=== PATIENT | female | born 1940 | race Caucasian/White ===

== ENCOUNTER 2016-10-14 15:55 | Emergency (ER) | payer MEDICARE ==
[2016-10-14] MEDS ORDERED: diltiaZEM INJ 5 MG/ML VIAL ONE ×2 (16:12→16:41)
[2016-10-14] MEDS ORDERED: diltiaZEM INJ 5 MG/ML VIAL IVP STA ×2 (16:14→16:41)
[2016-10-14 16:32] LABS: BASOPHILS % (AUTO) 0.7 %; EOSINOPHILS # (AUTO) 0.4 10^3/uL (0.0-0.7); EOSINOPHILS % (AUTO) 6.1 %; HCT - HEMATOCRIT 41.7 % (37.0-47.0); HGB - HEMOGLOBIN 14.3 g/dL (12.0-16.0); LYMPHOCYTES # (AUTO) 2.1 10^3/uL (1.5-3.5); LYMPHOCYTES % (AUTO) 35.5 %; MEAN CORPUSCULAR HEMOGLOBIN 32.8 pg (27.0-31.0); MEAN CORPUSCULAR HGB CONC 34.4 g/dL (32.0-36.0); MEAN CORPUSCULAR VOLUME 95.5 fL (81.0-99.0); MONOCYTES # (AUTO) 0.7 10^3/uL (0.0-1.0); MONOCYTES % (AUTO) 11.2 %; NEUTROPHILS # (AUTO) 2.8 10^3/uL (1.5-6.6); NEUTROPHILS % (AUTO) 46.5 %; RED BLOOD COUNT 4.37 10^6/uL (4.20-5.40); RED CELL DISTRIBUTION WIDTH 13.5 % (12.0-15.0); UNCORRECTED WHITE BLOOD COUNT 5.9 x10^3/uL; WHITE BLOOD COUNT 5.9 x10^3/uL (4.8-10.8)
[2016-10-14 16:43] LABS: ALBUMIN/GLOBULIN RATIO 1.2 (1.0-2.2); BILIRUBIN,TOTAL 1.1 mg/dL (0.2-1.0); CALCIUM 9.7 mg/dL (8.5-10.3); CREATININE 1.2 mg/dL (0.4-1.0); POTASSIUM 4.5 mmol/L (3.5-5.0); TOTAL PROTEIN 7.8 g/dL (6.7-8.2)
[2016-10-14] MEDS ORDERED: diltiaZEM INJ 125 MG in DEXTROSE 5% 100 ML IV STA (17:55)
[2016-10-14] MEDS ORDERED: DIGOXIN 500 MCG/2 ML AMP IVP STA (17:55)
--- NOTE | 2016-10-14 17:56 | ED Physician Documentation ---
History of Present Illness - Stated complaint Stated Complaint: EKG FOLLOW UP - Chief complaint Chief Complaint: Cardiac - History obtained from History obtained from: Patient - History of Present Illness Timing: Today - Additonal information Additional information: The patient is a 76-year-old female with history of atrial flutter, 17 month status post ablation therapy, who presents with rapid heart rate that she thinks started this morning. Her subcontract manager sent her to the hospital for an outpatient EKG. When that was performed the computer read it as an acute inferior IN. The patient was then sent directly to the emergency department. She denies chest pain, nausea, vomiting, or lightheadedness. She does report mild shortness of breath with activity. She has been power washing for the past 5 days and thinks her mild shortness of breath is associated with that. She denies cough or fever. Her medications include amlodipine and spironolactone. She was previously on diltiazem until that was stopped after her ablation therapy. Review of Systems Constitutional: denies: Fever, Myalgias Ears: denies: Tinnitus/ringing Nose: denies: Congestion Throat: denies: Sore throat Cardiac: reports: Palpitations. denies: Chest pain / pressure Respiratory: reports: Dyspnea (mild). denies: Cough GI: denies: Abdominal Pain, Nausea, Vomiting : denies: Dysuria Skin: denies: Rash Musculoskeletal: denies: Back pain, Extremity pain, Extremity swelling Neurologic: denies: Focal weakness, Numbness, Headache PD PAST MEDICAL HISTORY - Past Medical History Past Medical History: Yes Cardiovascular: Hypertension, Atrial flutter, Arrhythmia - Past Surgical History Past Surgical History: Yes General: Appendectomy - Present Medications Home Medications: Ambulatory Orders Medication Instructions Recorded Confirmed Diltiazem HCl [Diltiazem ER] 240 mg PO DAILY #30 tab.er.24h 10/14/16 Spironolactone 25 mg PO DAILY 10/14/16 10/14/16 amLODIPine [Norvasc] 5 mg PO DAILY 10/14/16 10/14/16 - Allergies Allergies/Adverse Reactions: Allergies Allergy/AdvReac Type Severity Reaction Status Date / Time Opioids - Morphine Analogues Allergy Unknown Verified 10/14/16 16:23 Penicillins Allergy Unknown Verified 10/14/16 16:23 - Social History Does the pt smoke?: No Smoking Status: Former smoker Does the pt have substance abuse?: No - POLST Patient has POLST: No PD ED PE NORMAL - Vitals Vital signs reviewed: Yes (tachycardic) - General General: Alert and oriented X 3, Well developed/nourished - HEENT HEENT: Atraumatic, EOMI - Neck Neck: No adenopathy, No JVD - Cardiac Cardiac: No murmur, Other (Rapid rate, regular rhythm.) - Respiratory Respiratory: No respiratory distress, Clear bilaterally - Abdomen Abdomen: Soft, Non tender - Back Back: No CVA TTP - Derm Derm: No rash - Extremities Extremities: No edema, No calf tenderness / cord - Neuro Neuro: Alert and oriented X 3, No motor deficit, Normal speech Results - Vitals Vitals: Vital Signs - 24 hr 10/14/16 10/14/16 10/14/16 15:56 16:10 16:15 Temperature 36.4 C L Heart Rate 131 H 130 H Respiratory 18 20 Rate Blood Pressure 146/106 H 125/80 Blood Pressure 141/86 H [Left] Blood Pressure 150/95 H [Right] O2 Saturation 96 99 10/14/16 10/14/16 10/14/16 16:20 16:25 16:30 Temperature Heart Rate 125 H 124 H 127 H Respiratory 20 18 Rate Blood Pressure 146/90 H 154/95 H Blood Pressure [Left] Blood Pressure [Right] O2 Saturation 100 100 10/14/16 10/14/16 10/14/16 16:40 16:45 16:50 Temperature Heart Rate 130 H 130 H 115 H Respiratory Rate Blood Pressure 154/100 H Blood Pressure [Left] Blood Pressure [Right] O2 Saturation 10/14/16 10/14/16 10/14/16 17:00 17:15 17:30 Temperature Heart Rate 123 H 123 H 116 H Respiratory 16 16 16 Rate Blood Pressure 136/92 H 153/93 H 158/54 H Blood Pressure [Left] Blood Pressure [Right] O2 Saturation 99 100 10/14/16 10/14/16 10/14/16 18:00 18:14 18:15 Temperature 36.2 C L Heart Rate 126 H 127 H 125 H Respiratory 16 18 16 Rate Blood Pressure 145/66 H 148/75 H 163/86 H Blood Pressure [Left] Blood Pressure [Right] O2 Saturation 100 94 10/14/16 10/14/16 10/14/16 18:30 19:18 19:19 Temperature 36.5 C Heart Rate 122 H 126 H 126 H Respiratory 16 18 16 Rate Blood Pressure 173/84 H 157/89 H 157/89 H Blood Pressure [Left] Blood Pressure [Right] O2 Saturation 100 96 96 Oxygen O2 Source Room air - EKG (time done) 15:35 Rate: Rate (enter#) (129) Rhythm: Atrial flutter (with 2:1 block.) Grulla: Normal Computer interpretation: Disagree with computer (Atrial flutter with 2:1 block; not sinus tach, and not acute inferior IN.) 17:18 Rate: Rate (enter#) (126) Rhythm: Atrial flutter Grulla: Normal Other comments: Other comments (Copies of the EKGs were reviewed with subcontract manager at [facility], inspector precision for Dr. Martínez. He verifies that the EKGs reveal atrial flutter and not ST elevation ischemic abnormalities. He states this is the same EKG pattern she has had in the past.) Computer interpretation: Disagree with computer - Labs Labs: Laboratory Tests 10/14/16 10/14/16 10/14/16 16:15 16:15 16:15 WBC 5.9 RBC 4.37 Hgb 14.3 Hct 41.7 MCV 95.5 MCH 32.8 H MCHC 34.4 RDW 13.5 Plt Count 256 MPV 9.0 Neut # 2.8 Lymph # 2.1 [place] # 0.7 Eos # 0.4 Baso # 0.0 Absolute Nucleated RBC 0.00 Nucleated RBCs 0.0 Sodium 134 L Potassium 4.5 Chloride 102 Carbon Dioxide 23 Anion Gap 9.0 BUN 35 H Creatinine 1.2 H Estimated GFR (MDRD) 44 L Glucose 97 Calcium 9.7 Total Bilirubin 1.1 H AST 27 ALT 19 Alkaline Phosphatase 49 Troponin I < 0.04 Total Protein 7.8 Albumin 4.3 Globulin 3.5 Albumin/Globulin Ratio 1.2 Lipase 20 L PD MEDICAL DECISION MAKING - ED course Complexity details: reviewed results, re-evaluated patient, considered differential, d/w patient, d/w customer care voice consultant ED course: The patient's presentation is significant for atrial flutter with 2:1 block. Clinically it is not an acute myocardial infarction, and her troponin is normal. Treatment in the emergency department included administration of diltiazem 10 mg IV x2. There was no significant change in her rhythm or rate. I discussed her condition with the subcontract manager at [facility], inspector precision for Dr. Martínez. Copies of the EKGs were sent to him electronically, and he confirms that this is atrial flutter and not an acute ischemic pattern. He reports that this is the same EKG pattern she has demonstrated on previous EKGs. He recommends starting her on diltiazem drip, giving her IV digoxin, and treating with oral diltiazem ER 240 mg daily. These medications were administered. I discussed with the patient hospital transfer to [facility] because there are no beds available currently at [facility]. The patient refuses to be hospitalized. I had a long discussion with her regarding the risks of going home with a heart rate above 120, especially at her age. She continues to insist that she be discharged home. She is more concerned about her inability to cope with the hospital milieu than she is with the risk of going home with continued tachycardia. She understands that she is welcome to return to the emergency department if her condition worsens or if she changes her mind. She is being discharged with prescription for diltiazem ER 240 mg daily. She has an appointment with her subcontract manager in 4 days. Departure - Departure Disposition: 01 Home, Self Care Clinical Impression: Atrial flutter Qualifiers: Atrial flutter type: unspecified Qualified Code(s): I48.92 - Unspecified atrial flutter Condition: Stable Instructions: ED Paroxysmal Atrial Flutter Follow-Up: Teresa Medina MD [Primary Care Provider] - Kodak Martínez MD [Provider Admit Priv/Credential] - Prescriptions: Diltiazem HCl [Diltiazem ER] 240 mg PO DAILY #30 tab.er.24h Comments: Take diltiazem daily as prescribed. Cannot perform strenuous activity until your symptoms have completely resolved. Follow up with your subcontract manager next week as planned. Return to the emergency department if you develop increasing shortness of breath , chest pain, or otherwise worsening symptoms. Discharge Date/Time: 10/14/16 19:27
[2016-10-14] MEDS ORDERED: DIGOXIN 500 MCG/2 ML AMP IVP ONE (18:01)
[2016-10-14] MEDS ORDERED: diltiaZEM CD 120 MG CAPSULE PO STA (18:05)
[2016-10-14] MEDS ORDERED: diltiaZEM CD 240 MG CAPSULE PO STA (18:16)
[2016-10-14 19:19] VITALS: BP 157/89
== END 2016-10-14 19:27 | disposition home or self-care (01) ==
LOC: ED 15:55
DX: I48.92 Unspecified atrial flutter (principal); I10 Essential (primary) hypertension; I49.9 Cardiac arrhythmia, unspecified; Z87.891 Personal history of nicotine dependence
CPT/HCPCS: 36415; 80053; 83690; 84484; 85025; 93005; 93010; 96374; 96375; 96376; 99284; 99285; A9270

== ENCOUNTER 2016-10-15 10:48 | Outpatient (CLI) | payer MEDICARE | END 2016-10-15 10:49 | disposition home or self-care (01) | LOC: RT 10:48 | PROVIDERS: ATTEND Internal Medicine | DX: I48.3 Typical atrial flutter (principal); I48.0 Paroxysmal atrial fibrillation | CPT/HCPCS: 93005 ==

== ENCOUNTER 2016-10-15 12:38 | Outpatient (CLI) | payer MEDICARE | END 2016-10-15 12:39 | disposition home or self-care (01) | LOC: RT 12:38 | PROVIDERS: ATTEND Internal Medicine | DX: I48.0 Paroxysmal atrial fibrillation (principal); I48.3 Typical atrial flutter | CPT/HCPCS: 93005 ==

== ENCOUNTER 2018-03-14 14:02 | Outpatient (CLI) | payer MEDICARE ==
--- NOTE | 2018-03-14 15:13 | XRAY Report ---
Reason: CELLULITIS Procedure Date: 03/14/2018 Accession Number: [id number] / [id number] Procedure: XR - Orbits Complete CPT Code: FULL RESULT: EXAM: ORBITS RADIOGRAPHY EXAM DATE: 03/14/2018 03:03 PM. CLINICAL HISTORY: CELLULITIS. COMPARISONS: None. TECHNIQUE: 4 views. FINDINGS: Bones: No fractures or bone lesions. Sinuses: No opacities or fluid levels. Other: No radio opaque foreign body. IMPRESSION: Negative orbit radiography. RADIA
== END 2018-03-14 14:03 | disposition home or self-care (01) ==
LOC: DI 14:02
PROVIDERS: ATTEND Internal Medicine
DX: L03.90 Cellulitis, unspecified (principal)
CPT/HCPCS: 70200

== ENCOUNTER 2018-08-11 12:13 | Emergency (ER) | payer MEDICARE ==
[2018-08-11] MEDS ORDERED: diltiaZEM INJ 5 MG/ML VIAL IVP STA ×2 (13:18→14:36)
[2018-08-11] MEDS ORDERED: SODIUM CHLORIDE 0.9% 500 ML IV ONE (13:18)
--- NOTE | 2018-08-11 13:20 | ED Physician Documentation ---
PD HPI CHEST PAIN - Stated complaint Stated Complaint: DIZZINESS - Chief complaint Chief Complaint: Cardiac - History obtained from History obtained from: Patient - History of Present Illness Timing - onset: How many weeks ago (3-4) Timing - onset during: Rest, Light activity Timing - duration: Days (She has had episode of lightheadedness associated with fast heart rate episodically for the last 3-4 weeks. She was seen in the office and was found to have a fast heart rate likely atrial flutter. She was started on metoprolol which gave her trouble breathing and hives. She only took 1 dose of that. She then was tried on diltiazem and had over the next week or 2 more consistently normal heart rate but also slightly low blood pressure. She had not taken the diltiazem the last few days and notices her heart rate more consistently elevated. She does write down her heart rate and blood pressure when she takes it and her tachycardia has been consistently 135-140 without any moderate elevations in heart rate.) Timing - details: Intermittant Quality: Tightness Location: Substernal Associated symptoms: Feeling faint / dizzy, General Weakness, Palpitations. No: Shortness of air, Nausea Review of Systems Constitutional: denies: Fever, Chills, Myalgias Nose: denies: Rhinorrhea / runny nose, Congestion Throat: denies: Sore throat Respiratory: denies: Cough GI: denies: Abdominal Pain, Nausea, Vomiting, Diarrhea Neurologic: denies: Near syncope (but feeling lightheaded often over past few days) PD PAST MEDICAL HISTORY - Past Medical History Past Medical History: Yes Cardiovascular: Hypertension, Atrial flutter (She had an ablation done many years ago in [place] by Dr. Yates and had been doing well for several years. She is now started with the fast heart rate episodes in the last month or so.), Arrhythmia Endocrine/Autoimmune: None - Past Surgical History Past Surgical History: Yes General: Appendectomy - Present Medications Home Medications: Ambulatory Orders Medication Instructions Recorded Confirmed Diltiazem HCl [Diltiazem ER] 240 mg PO DAILY #30 tab.er.24h 10/14/16 Spironolactone 25 mg PO DAILY 10/14/16 10/14/16 amLODIPine [Norvasc] 5 mg PO DAILY 10/14/16 10/14/16 Benzonatate [Tessalon Perle] 100 mg PO TID PRN #20 capsule 08/11/18 Dexamethasone [Decadron] 4 mg PO DAILY #5 tablet 08/11/18 Rivaroxaban [Xarelto] 15 mg PO DAILY #7 tablet 08/11/18 diltiaZEM CD [Cardizem Cd] 180 mg PO DAILY #10 capsule 08/11/18 - Allergies Allergies/Adverse Reactions: Allergies Allergy/AdvReac Type Severity Reaction Status Date / Time Opioids - Morphine Analogues Allergy Unknown Verified 08/11/18 12:20 Penicillins Allergy Unknown Verified 08/11/18 12:20 - Social History Does the pt smoke?: No Smoking Status: Never smoker Does the pt have substance abuse?: No - POLST Patient has POLST: No PD ED PE NORMAL - Vitals Vital signs reviewed: Yes (Fast heart rate at 140 consistently and blood pressure is slightly low but ) - General General: Alert and oriented X 3, No acute distress, Well developed/nourished - HEENT HEENT: Pharynx benign - Neck Neck: Supple, no meningeal sign, No adenopathy, No JVD - Cardiac Cardiac: No: RRR (Tachycardic but regular) - Respiratory Respiratory: Clear bilaterally - Abdomen Abdomen: Soft, Non tender - Derm Derm: Normal color, Warm and dry - Extremities Extremities: No tenderness to palpate, No edema, No calf tenderness / cord - Neuro Neuro: Alert and oriented X 3, No motor deficit, Normal speech Results - Vitals Vitals: Vital Signs - 24 hr 08/11/18 08/11/18 08/11/18 12:17 12:20 13:38 Temperature 35.6 C L Heart Rate 140 H 140 H 141 H Respiratory 14 14 Rate Blood Pressure 103/71 103/71 131/84 H O2 Saturation 98 98 08/11/18 08/11/18 08/11/18 13:39 14:58 16:00 Temperature Heart Rate 140 H 139 H 137 H Respiratory 14 16 Rate Blood Pressure 124/87 H 104/92 H 107/91 H O2 Saturation 98 98 100 08/11/18 17:50 Temperature 36.6 C Heart Rate 130 H Respiratory 16 Rate Blood Pressure 108/90 H O2 Saturation 100 Oxygen O2 Source Room air - EKG (time done) 12:36 Rate: Rate (enter#) (142) Rhythm: Atrial flutter Diller: Normal QRS: Normal Ischemia: Normal ST segments. No: ST elevation c/w ischemia, ST depression - Labs Labs: Laboratory Tests 08/11/18 08/11/18 08/11/18 12:38 12:38 12:38 WBC 5.6 RBC 4.82 Hgb 15.5 Hct 46.7 MCV 96.9 MCH 32.1 H MCHC 33.1 RDW 12.6 Plt Count 315 MPV 8.8 Neut # (Auto) 3.4 Lymph # (Auto) 1.6 [place] # (Auto) 0.5 Eos # (Auto) 0.1 Baso # (Auto) 0.0 Absolute Nucleated RBC 0.01 Nucleated RBC % 0.1 Sodium 134 L Potassium 4.6 Chloride 101 Carbon Dioxide 21 Anion Gap 12.0 BUN 37 H Creatinine 1.8 H Estimated GFR (MDRD) 27 L Glucose 133 H Calcium 10.2 Magnesium 2.2 Total Bilirubin 1.1 H AST 25 ALT 19 Alkaline Phosphatase 51 B-Natriuretic Peptide 69 Total Protein 7.9 Albumin 4.4 Globulin 3.5 Albumin/Globulin Ratio 1.3 Lipase 29 TSH 08/11/18 12:38 WBC RBC Hgb Hct MCV MCH MCHC RDW Plt Count MPV Neut # (Auto) Lymph # (Auto) [place] # (Auto) Eos # (Auto) Baso # (Auto) Absolute Nucleated RBC Nucleated RBC % Sodium Potassium Chloride Carbon Dioxide Anion Gap BUN Creatinine Estimated GFR (MDRD) Glucose Calcium Magnesium Total Bilirubin AST ALT Alkaline Phosphatase B-Natriuretic Peptide Total Protein Albumin Globulin Albumin/Globulin Ratio Lipase TSH 3.05 - Rads (name of study) chest xray Radiology: Prelim report reviewed (No signs of failure.), See rad report PD MEDICAL DECISION MAKING - ED course Complexity details: re-evaluated patient (She did not have any slowing with doses of diltiazem. I did try adenosine to verify atrial flutter versus SVT and there clearly were flutter waves during the pausing time with the adenosine. He returned to the same heart rate of 140. I talked with her about potential rhythm changing medicines or cardioversion but wanted to discuss with the vp organizational development first. After discussion with the on-call vp organizational development, he gave appropriate recommendation to defer any cardioversion given the timing that she is likely had the flutter for concern of clots and potential stroke. I relayed this to the patient and the cardiology recommendation to start anticoagulation and change the dosing of diltiazem to 1 in between help and the heart rate and not lowering her blood pressure. Stay well-hydrated. Follow-up with Dr. Martínez. She does have a appointment with him in 6 days. She should call the office tomorrow to see if they can see her sooner. She was hoping to feel improved and have the heart rhythm resolved here in the ER. And I conveyed to her the concern for potential stroke with cardioversion and that she has reasonably tolerated the heart rate being intermittently in flutter over the last few weeks with lightheadedness at times but we can try to mitigate that with a different diltiazem dose.She had felt lightheaded and had blood pressures in the 80s or 90s with the 240 mg diltiazem. Her heart rate was going faster with the half tablet of 120 mg. I therefore wrote a prescription for 180 to see if that would be an optimal middle.), considered differential (The heart monitor is showing a regular pattern and a fast rate at very consistently 135-140. There is not much variation in it. The EKG showing reading sinus rhythm tachycardia but I believe it to be atrial flutter. We will do some labs but she does not seem to have signs of failure. She shows me her blood pressure and heart rate readings over the last several weeks which showed most of the time of rate of 137-140. Her blood pressure was intermittently low and that correlated when she was feeling lightheaded. She had cut back the dose of her diltiazem to accommodate the blood pressure being low and stop the diltiazem or a few days ago. Her blood pressure is better but her heart rate is fast again. There has been times where her heart rate was normal over the past few weeks.She has noticed it being 137-140 consistently over the last 3-4 days.), d/w patient Departure - Departure Disposition: 01 Home, Self Care Clinical Impression: Atrial flutter Qualifiers: Atrial flutter type: unspecified Qualified Code(s): I48.92 - Unspecified atrial flutter Condition: Stable Record reviewed to determine appropriate education?: Yes Instructions: ED Paroxysmal Atrial Flutter Follow-Up: Teresa Medina MD [Primary Care Provider] - Kodak Martínez MD [Provider Admit Priv/Credential] - Prescriptions: Benzonatate [Tessalon Perle] 100 mg PO TID PRN #20 capsule PRN Reason: Cough Dexamethasone [Decadron] 4 mg PO DAILY #5 tablet diltiaZEM CD [Cardizem Cd] 180 mg PO DAILY #10 capsule Rivaroxaban [Xarelto] 15 mg PO DAILY #7 tablet Comments: Continue the Diltiazem as directed (could use a lower dose so less BP effect). Decadron and Tessalon to help decrease the cough. Stay well-hydrated. Start Xarelto daily at the direction of the vp organizational development. Follow-up with Dr. Martínez as planned. Discharge Date/Time: 08/11/18 17:50
[2018-08-11 13:32] LABS: BASOPHILS % (AUTO) 0.3 %; EOSINOPHILS # (AUTO) 0.1 10^3/uL (0.0-0.7); EOSINOPHILS % (AUTO) 1.7 %; HGB - HEMOGLOBIN 15.5 g/dL (12.0-16.0); LYMPHOCYTES # (AUTO) 1.6 10^3/uL (1.5-3.5); LYMPHOCYTES % (AUTO) 27.9 %; MEAN CORPUSCULAR HEMOGLOBIN 32.1 pg (27.0-31.0); MEAN CORPUSCULAR HGB CONC 33.1 g/dL (32.0-36.0); MEAN CORPUSCULAR VOLUME 96.9 fL (81.0-99.0); MEAN PLATELET VOLUME 8.8 fL (7.9-10.8); MONOCYTES # (AUTO) 0.5 10^3/uL (0.0-1.0); MONOCYTES % (AUTO) 9.3 %; NEUTROPHILS # (AUTO) 3.4 10^3/uL (1.5-6.6); NEUTROPHILS % (AUTO) 60.8 %; PLT - PLATELET COUNT 315 10^3/uL (130-450); RED BLOOD COUNT 4.82 10^6/uL (4.20-5.40); RED CELL DISTRIBUTION WIDTH 12.6 % (12.0-15.0); WHITE BLOOD COUNT 5.6 x10^3/uL (4.8-10.8)
[2018-08-11 13:41] LABS: ALBUMIN 4.4 g/dL (3.2-5.5); ALBUMIN/GLOBULIN RATIO 1.3 (1.0-2.2); BILIRUBIN,TOTAL 1.1 mg/dL (0.2-1.0); CALCIUM 10.2 mg/dL (8.5-10.3); CREATININE 1.8 mg/dL (0.4-1.0); MAGNESIUM 2.2 mg/dL (1.7-2.8); TOTAL PROTEIN 7.9 g/dL (6.7-8.2)
[2018-08-11] MEDS ORDERED: ADENOSINE 6 MG/2 ML VIAL IVP STA (14:14)
--- NOTE | 2018-08-11 14:16 | XRAY Report ---
Reason: chest pain Procedure Date: 08/11/2018 Accession Number: [id number] / [id number] Procedure: XR - Chest 1 View X-Ray CPT Code: 09852 FULL RESULT: EXAM: CHEST RADIOGRAPHY EXAM DATE: 08/11/2018 01:53 PM. CLINICAL HISTORY: Chest pain. Rapid heart rate for 1 month. Productive cough for 2 weeks. COMPARISON: 12/23/2014 5:43 PM. TECHNIQUE: Upright AP view. FINDINGS: Lungs/Pleura: No focal opacities evident. No peribronchial cuffing or interstitial abnormality. No pleural effusion. No pneumothorax. Mediastinum: Within exam limitations, the cardiomediastinal contour is normal. Other: None. IMPRESSION: Normal single view chest. RADIA
[2018-08-11] MEDS ORDERED: diltiaZEM 30 MG TABLET PO STA (16:13)
[2018-08-11] MEDS ORDERED: RIVAROXABAN 15 MG TABLET PO STA (16:13)
[2018-08-11] MEDS ORDERED: BENZONATATE 100 MG CAPSULE PO STA (16:14)
[2018-08-11 17:51] VITALS: BP 108/90
== END 2018-08-11 17:50 | disposition home or self-care (01) ==
LOC: ED 12:13
DX: I10 Essential (primary) hypertension (principal); I48.92 Unspecified atrial flutter; I95.9 Hypotension, unspecified
CPT/HCPCS: 36415; 71045; 83690; 83735; 83880; 93005; 96361; 96374; 96375; 99284; A9270; J0153; 80053; 84443; 85025

== ENCOUNTER 2018-08-17 09:49 | Outpatient (CLI) | payer MEDICARE | END 2018-08-17 09:50 | disposition home or self-care (01) | LOC: RT 09:49 | PROVIDERS: ATTEND Internal Medicine Cardiovascular Disease | DX: I48.92 Unspecified atrial flutter (principal) | CPT/HCPCS: 93005 ==

== ENCOUNTER 2018-09-06 10:37 | Outpatient (CLI) | payer MEDICARE ==
[2018-09-06 11:18] LABS: BASOPHILS # (AUTO) 0.1 10^3/uL (0.0-0.1); BASOPHILS % (AUTO) 1.2 %; EOSINOPHILS # (AUTO) 0.3 10^3/uL (0.0-0.7); EOSINOPHILS % (AUTO) 5.7 %; LYMPHOCYTES # (AUTO) 1.4 10^3/uL (1.5-3.5); LYMPHOCYTES % (AUTO) 28.2 %; MEAN CORPUSCULAR HEMOGLOBIN 32.3 pg (27.0-31.0); MEAN CORPUSCULAR HGB CONC 33.1 g/dL (32.0-36.0); MEAN CORPUSCULAR VOLUME 97.3 fL (81.0-99.0); MEAN PLATELET VOLUME 8.5 fL (7.9-10.8); MONOCYTES # (AUTO) 0.5 10^3/uL (0.0-1.0); MONOCYTES % (AUTO) 10.4 %; NEUTROPHILS # (AUTO) 2.8 10^3/uL (1.5-6.6); NEUTROPHILS % (AUTO) 54.5 %; PLT - PLATELET COUNT 251 10^3/uL (130-450); RED BLOOD COUNT 4.04 10^6/uL (4.20-5.40); RED CELL DISTRIBUTION WIDTH 13.2 % (12.0-15.0); WHITE BLOOD COUNT 5.1 x10^3/uL (4.8-10.8)
[2018-09-06 11:24] LABS: INR 1.4 (0.8-1.2); PT - PROTHROMBIN TIME 15.9 secs (9.9-12.6)
[2018-09-06 11:35] LABS: CALCIUM 9.7 mg/dL (8.5-10.3); CREATININE 1.2 mg/dL (0.4-1.0)
== END 2018-09-06 10:38 | disposition home or self-care (01) ==
LOC: LAB 10:37
PROVIDERS: ATTEND Internal Medicine
DX: I48.3 Typical atrial flutter (principal)
CPT/HCPCS: 36415; 80048; 85025; 85610

== ENCOUNTER 2019-04-10 11:47 | Outpatient (CLI) | payer MEDICARE ==
--- NOTE | 2019-04-11 09:35 | XRAY Report ---
Reason: CHEST PAIN Procedure Date: 04/10/2019 Accession Number: [id number] / [id number] Procedure: WCP - Chest 2 View X-Ray CPT Code: 21506 Final Report FULL RESULT: EXAM: CHEST RADIOGRAPHY EXAM DATE: 04/10/2019 11:47 AM. CLINICAL HISTORY: CHEST PAIN. COMPARISON: CHEST 1 VIEW 08/11/2018 1:42 PM XR CHEST PA AND LAT 11/24/2011 10:16 AM. TECHNIQUE: 2 views. FINDINGS: Lungs/Pleura: Hazy opacity in the left lung base with trace ipsilateral effusion. The lungs are otherwise grossly clear. No pneumothorax. Mediastinum: Stable cardiac mediastinal contour. Other: None. IMPRESSION: Minimal left basilar opacity with trace ipsilateral effusion. RADIA
== END 2019-04-10 23:59 | disposition home or self-care (01) ==
LOC: DI.WCP 11:47
PROVIDERS: ATTEND Family Medicine
DX: R91.8 Other nonspecific abnormal finding of lung field (principal)
CPT/HCPCS: 71046

== ENCOUNTER 2019-05-31 13:59 | Outpatient (CLI) | payer MEDICARE ==
--- NOTE | 2019-05-31 20:41 | Ultrasound Report ---
Reason: LUE EDEMA Procedure Date: 05/31/2019 Accession Number: [id number] / [id number] Procedure: US - Duplex Ext Veins Left CPT Code: Final Report FULL RESULT: EXAM: LEFT LOWER EXTREMITY VENOUS ULTRASOUND EXAM DATE: 05/31/2019 03:22 PM. CLINICAL HISTORY: Left upper extremity edema. COMPARISON: None. TECHNIQUE: Real-time sonographic vascular imaging was performed by the title insurance sales representative through the lower extremity utilizing both color-flow and Doppler spectral analysis. Multiple financial services sales representative static images were saved for review. FINDINGS: Common Femoral Vein (CFV): Normal. CFV-GSV Junction: Normal. Profunda Femoral Vein (PFV): Normal. Femoral Vein (FV) Prox: Normal. Femoral Vein (FV) Mid: Normal. Femoral Vein (FV) Dist: Normal. Popliteal Vein: Normal. Posterior Tibial Veins: Normal. Peroneal Veins: Normal. Contralateral Side CFV: Normal. Other: Complex debris-containing collection is noted along the tendons of the dorsal left hand corresponding to the patient's palpable finding. Overall, the fluid measures approximately 2.5 x 2.2 x 1 cm. Peripheral hypervascularity is noted on color imaging. IMPRESSION: 1. No evidence for deep venous thrombosis. 2. Complex debris-containing fluid along the tendons of the dorsal left hand with surrounding hyperemia. Fluid measures approximately 2.5 x 2.2 x 1 cm. Findings most likely represent an inflammatory process possibly due to tenosynovitis. No definite abscess. 3. If finding continues to increase in size or becomes painful, recommend MRI with and without contrast. RADIA
== END 2019-05-31 14:00 | disposition home or self-care (01) ==
LOC: DI 13:59
PROVIDERS: ATTEND Internal Medicine
DX: R60.0 Localized edema (principal)

== ENCOUNTER 2020-09-18 10:44 | Outpatient (CLI) | payer MEDICARE | END 2020-09-18 10:45 | disposition home or self-care (01) | LOC: RT 10:44 | PROVIDERS: ATTEND Internal Medicine Cardiovascular Disease | DX: I48.92 Unspecified atrial flutter (principal) | CPT/HCPCS: 93005 ==

== ENCOUNTER 2020-11-25 13:34 | Outpatient (CLI) | payer MEDICARE ==
[2020-11-25 13:52] LABS: HCT - HEMATOCRIT 42.8 % (37.0-47.0); MEAN CORPUSCULAR HEMOGLOBIN 32.3 pg (27.0-31.0); MEAN CORPUSCULAR HGB CONC 32.7 g/dL (32.0-36.0); MEAN CORPUSCULAR VOLUME 98.8 fL (81.0-99.0); MEAN PLATELET VOLUME 9.7 fL (7.9-10.8); RED BLOOD COUNT 4.33 10^6/uL (4.20-5.40); RED CELL DISTRIBUTION WIDTH 13.7 % (12.0-15.0); WHITE BLOOD COUNT 5.5 x10^3/uL (4.8-10.8)
[2020-11-25 13:59] LABS: CALCIUM 9.9 mg/dL (8.5-10.3); CREATININE 1.4 mg/dL (0.4-1.0); POTASSIUM 4.6 mmol/L (3.5-5.0)
== END 2020-11-25 13:35 | disposition home or self-care (01) ==
LOC: LAB 13:34
PROVIDERS: ATTEND Internal Medicine Cardiovascular Disease
DX: I48.3 Typical atrial flutter (principal)
CPT/HCPCS: 36415; 80048; 85027

== ENCOUNTER 2021-07-02 12:15 | Emergency (ER) | payer MEDICARE ==
[2021-07-02] MEDS ORDERED: SODIUM CHLORIDE 0.9% 1,000 ML IV STA (12:25)
[2021-07-02 12:50] LABS: BASOPHILS % (AUTO) 0.2 %; EOSINOPHILS % (AUTO) 0.4 %; HCT - HEMATOCRIT 46.6 % (37.0-47.0); HGB - HEMOGLOBIN 15.4 g/dL (12.0-16.0); LYMPHOCYTES # (AUTO) 1.4 10^3/uL (1.5-3.5); MEAN CORPUSCULAR VOLUME 96.7 fL (81.0-99.0); MEAN PLATELET VOLUME 10.4 fL (7.9-10.8); MONOCYTES # (AUTO) 0.4 10^3/uL (0.0-1.0); NEUTROPHILS # (AUTO) 2.9 10^3/uL (1.5-6.6); NEUTROPHILS % (AUTO) 61.2 %; PLT - PLATELET COUNT 248 10^3/uL (130-450); RED BLOOD COUNT 4.82 10^6/uL (4.20-5.40); RED CELL DISTRIBUTION WIDTH 12.8 % (12.0-15.0); WHITE BLOOD COUNT 4.7 x10^3/uL (4.8-10.8)
[2021-07-02 12:59] LABS: ALBUMIN 4.2 g/dL (3.2-5.5); ALBUMIN/GLOBULIN RATIO 1.2 (1.0-2.2); BILIRUBIN,TOTAL 0.9 mg/dL (0.2-1.0); CALCIUM 9.4 mg/dL (8.5-10.3); CREATININE 1.8 mg/dL (0.4-1.0); POTASSIUM 4.2 mmol/L (3.5-5.0); TOTAL PROTEIN 7.8 g/dL (6.7-8.2)
--- NOTE | 2021-07-02 13:08 | ED Physician Documentation ---
History of Present Illness - Stated complaint Stated Complaint: HYPOTENSIVE - Chief complaint Chief Complaint: Neuro - History obtained from History obtained from: Patient - History of Present Illness Timing: How many days ago (10) Pain level max: 0 Pain level now: 0 - Additonal information Additional information: 81-year-old female presents to the emergency department stating she has felt weak and tired for the past 10 days. Mild cough. No fevers. No chills. Has not been eating and drinking well. She states that she has felt lightheaded with standing. No chest pain. No shortness of breath. No nausea or vomiting. No abdominal pain. 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 denies: Dyspnea, Wheezing GI: denies: Nausea, Vomiting, Diarrhea Skin: denies: Rash Musculoskeletal: denies: Neck pain, Back pain Neurologic: denies: Headache PD PAST MEDICAL HISTORY - Past Medical History Cardiovascular: Hypertension, Atrial flutter (She had an ablation done many years ago in [place] by Dr. Yates and had been doing well for several years. She is now started with the fast heart rate episodes in the last month or so.), Arrhythmia Endocrine/Autoimmune: None - Past Surgical History Past Surgical History: Yes General: Appendectomy - Present Medications Home Medications: Ambulatory Orders Medication Instructions Recorded Confirmed Spironolactone 25 mg PO DAILY 10/14/16 10/14/16 amLODIPine [Norvasc] 5 mg PO DAILY 10/14/16 10/14/16 dilTIAZem HCl [Diltiazem ER] 240 mg PO DAILY #30 tab.er.24h 10/14/16 Benzonatate [Tessalon Perle] 100 mg PO TID PRN #20 capsule 08/11/18 Rivaroxaban [Xarelto] 15 mg PO DAILY #7 tablet 08/11/18 dexAMETHasone [Decadron] 4 mg PO DAILY #5 tablet 08/11/18 diltiaZEM CD [Cardizem Cd] 180 mg PO DAILY #10 capsule 08/11/18 - Allergies Allergies/Adverse Reactions: Allergies Allergy/AdvReac Type Severity Reaction Status Date / Time Opioids - Morphine Analogues Allergy Unknown Verified 07/02/21 12:30 Penicillins Allergy Unknown Verified 07/02/21 12:30 - Social History Does the pt smoke?: No Smoking Status: Never smoker Does the pt have substance abuse?: No - POLST Patient has POLST: No PD ED PE NORMAL - Vitals Vital signs reviewed: Yes - General General: Alert and oriented X 3, No acute distress, Well developed/nourished - HEENT HEENT: PERRL, Moist mucous membranes - Neck Neck: Supple, no meningeal sign - Cardiac Cardiac: RRR, Strong equal pulses - Respiratory Respiratory: No respiratory distress, Clear bilaterally - Abdomen Abdomen: Soft, Non tender, Non distended - Derm Derm: Warm and dry - Extremities Extremities: No calf tenderness / cord, Other (1+ B LE edema) - Neuro Neuro: Alert and oriented X 3 - Psych Psych: Normal mood, Normal affect Results - Vitals Vitals: Vital Signs - 24 hr 07/02/21 07/02/21 07/02/21 12:20 13:06 13:30 Temperature 36.9 C Heart Rate 79 87 73 Respiratory 18 20 14 Rate Blood Pressure 109/67 117/89 H 135/85 H O2 Saturation 99 95 95 07/02/21 07/02/21 07/02/21 14:00 14:30 15:00 Temperature Heart Rate 85 82 84 Respiratory 10 L 23 22 Rate Blood Pressure 119/108 H 92/73 99/75 O2 Saturation 98 95 96 Oxygen O2 Source Room air - EKG (time done) 1308 Rate: Rate (enter#) (84) Rhythm: Atrial fibrillation [place]: Normal QRS: Normal Ischemia: Normal ST segments - Labs Labs: Laboratory Tests 07/02/21 07/02/21 07/02/21 12:39 12:39 12:39 WBC 4.7 L RBC 4.82 Hgb 15.4 Hct 46.6 MCV 96.7 MCH 32.0 H MCHC 33.0 RDW 12.8 Plt Count 248 MPV 10.4 Neut # (Auto) 2.9 Lymph # (Auto) 1.4 L [place] # (Auto) 0.4 Eos # (Auto) 0.0 Baso # (Auto) 0.0 Absolute Nucleated RBC 0.00 Nucleated RBC % 0.0 Sodium 134 L Potassium 4.2 Chloride 102 Carbon Dioxide 20 L Anion Gap 12.0 BUN 28 H Creatinine 1.8 H Estimated GFR (MDRD) 27 L Glucose 148 H Calcium 9.4 Total Bilirubin 0.9 AST 30 ALT 24 Alkaline Phosphatase 74 Troponin I High Sens 7.6 B-Natriuretic Peptide Total Protein 7.8 Albumin 4.2 Globulin 3.6 Albumin/Globulin Ratio 1.2 Lipase 34 Urine Color Urine Clarity Urine pH Ur Specific [place] Urine Protein Urine Glucose (UA) Urine Ketones Urine Occult Blood Urine Nitrite Urine Bilirubin Urine Urobilinogen Ur Leukocyte Esterase Urine RBC Urine WBC Ur Squamous Epith Cells Amorphous Sediment Urine Bacteria Ur Microscopic Review Urine Culture Comments Nasal Adenovirus (PCR) Nasal B. parapertussis DNA (PCR) Nasal Coronavir 229E PCR Nasal Coronavir HKU1 PCR Nasal Coronavir NL63 PCR Nasal Coronavir OC43 PCR Nasal Enterovir/Rhinovir PCR Nasal Influenza B PCR Nasal Influenza A PCR Nasal Parainfluen 1 PCR Nasal Parainfluen 2 PCR Nasal Parainfluen 3 PCR Nasal Parainfluen 4 PCR Nasal RSV (PCR) Nasal B.pertussis DNA PCR Nasal C.pneumoniae (PCR) [place] Human Metapneumo PCR Nasal M.pneumoniae (PCR) Nasal SARS-CoV-2 (PCR) 07/02/21 07/02/21 07/02/21 12:39 13:05 13:55 WBC RBC Hgb Hct MCV MCH MCHC RDW Plt Count MPV Neut # (Auto) Lymph # (Auto) [place] # (Auto) Eos # (Auto) Baso # (Auto) Absolute Nucleated RBC Nucleated RBC % Sodium Potassium Chloride Carbon Dioxide Anion Gap BUN Creatinine Estimated GFR (MDRD) Glucose Calcium Total Bilirubin AST ALT Alkaline Phosphatase Troponin I High Sens B-Natriuretic Peptide 264 H Total Protein Albumin Globulin Albumin/Globulin Ratio Lipase Urine Color YELLOW Urine Clarity SL. CLOUDY Urine pH 7.0 Ur Specific [place] 1.020 Urine Protein 100 H Urine Glucose (UA) NEGATIVE Urine Ketones TRACE Urine Occult Blood NEGATIVE Urine Nitrite NEGATIVE Urine Bilirubin NEGATIVE Urine Urobilinogen 1 (NORMAL) Ur Leukocyte Esterase NEGATIVE Urine RBC 6-10 H Urine WBC 0-3 Ur Squamous Epith Cells MOD Squamous H Amorphous Sediment Few Urine Bacteria Moderate H Ur Microscopic Review INDICATED Urine Culture Comments NOT INDICATED Nasal Adenovirus (PCR) NOT DETECTED Nasal B. parapertussis DNA (PCR) NOT DETECTED Nasal Coronavir 229E PCR NOT DETECTED Nasal Coronavir HKU1 PCR NOT DETECTED Nasal Coronavir NL63 PCR NOT DETECTED Nasal Coronavir OC43 PCR NOT DETECTED Nasal Enterovir/Rhinovir PCR NOT DETECTED Nasal Influenza B PCR NOT DETECTED Nasal Influenza A PCR NOT DETECTED Nasal Parainfluen 1 PCR NOT DETECTED Nasal Parainfluen 2 PCR NOT DETECTED Nasal Parainfluen 3 PCR NOT DETECTED Nasal Parainfluen 4 PCR NOT DETECTED Nasal RSV (PCR) NOT DETECTED Nasal B.pertussis DNA PCR NOT DETECTED Nasal C.pneumoniae (PCR) NOT DETECTED [place] Human Metapneumo PCR NOT DETECTED Nasal M.pneumoniae (PCR) NOT DETECTED Nasal SARS-CoV-2 (PCR) DETECTED A - Rads (name of study) cxr Radiology: Final report received, EMP read contemporaneously, See rad report (1. Small right middle lobe pulmonary infiltrate consistent with pneumonia ) PD MEDICAL DECISION MAKING - ED course Complexity details: reviewed results, re-evaluated patient, considered differential, d/w patient ED course: 81-year-old female with what appears to be dehydration as well as Covid. Chest x-ray is likely consistent with viral pneumonia/Covid. No indication for antibiotics at this time. Patient is well-appearing, nontoxic. Lightheadedness resolved with IV fluids. Tolerating p.o. without difficulty and ambulating without difficulty and without assistance. Patient request to go home at this time. Patient has been sick with Covid for about 10 days. Not vaccinated. Patient counseled regarding signs and symptoms for which I believe and urgent re-evaluation would be necessary. Patient with good understanding of and agreement to plan and is comfortable going home at this time This document was made in part using voice recognition software. While efforts are made to proofread this document, sound alike and grammatical errors may occur. Departure - Departure Disposition: 01 Home, Self Care Clinical Impression: COVID-19 Hypotension Qualifiers: Hypotension type: unspecified hypotension type Qualified Code(s): I95.9 - Hypotension, unspecified Condition: Good Instructions: COVID-19 [facility] Follow-Up: Kodak Martínez MD [Provider Admit Priv/Credential] - Within 1 week Kennedy Moya MD [Primary Care Provider] - Within 1 week Comments: Drink plenty of fluids and rest. Return if you worsen. You have tested positive for Covid today and need to self quarantine. Discharge Date/Time: 07/02/21 15:37
--- NOTE | 2021-07-02 13:42 | XRAY Report ---
PROCEDURE: Chest 1 View X-Ray INDICATIONS: cough TECHNIQUE: One view of the chest was acquired. COMPARISON: 12/23/2014 FINDINGS: Surgical changes and devices: None. Lungs and pleura: Right middle lobe focal pulmonary infiltrate noted over the right hemidiaphragm. Re mainder of the lungs and pleural spaces are clear. Mediastinum: Mediastinal contours appear normal. Heart size is normal. Bones and chest wall: No suspicious bony lesions. Overlying soft tissues appear unremarkable. IMPRESSION: 1. Small right middle lobe pulmonary infiltrate consistent with pneumonia Reviewed by: Lit Clark MD on 07/02/2021 12:41 PM AKST Approved by: Lit Clark MD on 07/02/2021 12:41 PM AKST Station ID: [id number]
[2021-07-02 14:01] LABS: BILIRUBIN,URINE NEGATIVE (NEGATIVE); GLUCOSE, URINE (UA) NEGATIVE (NEGATIVE); KETONES,URINE (UA) TRACE mg/dL (NEGATIVE); LEUKOCYTE ESTERASE, URINE NEGATIVE (NEGATIVE); NITRITE,URINE NEGATIVE (NEGATIVE); OCCULT BLOOD,URINE NEGATIVE (NEGATIVE); PROTEIN,URINE 100 mg/dL (NEGATIVE); UROBILINOGEN,URINE 1 (NORMAL) E.U./dL (NORMAL)
[2021-07-02 14:07] LABS: BACTERIA,URINE Moderate /HPF (None Seen); CLARITY,URINE SL. CLOUDY (CLEAR); SQUAMOUS EPITHELIAL CELL,UR MOD Squamous (<= Few); WBC,URINE 0-3 /HPF (0-5)
[2021-07-02 14:08] LABS: AMORPHOUS SEDIMENT,UR Few /LPF
[2021-07-02 14:24] LABS: B. PARAPERTUSSIS- RESP PCR PAN NOT DETECTED; B. PERTUSSIS- RESP PCR PANEL NOT DETECTED; C. PNEUMONIAE- RESP PCR PANEL NOT DETECTED; CORONAVIRUS 229E-RESP PCR NOT DETECTED; CORONAVIRUS HKU1-RESP PCR NOT DETECTED; CORONAVIRUS NL63-RESP PCR NOT DETECTED; CORONAVIRUS OC43-RESP PCR NOT DETECTED; HUMAN METAPNEUMOVIRUS NOT DETECTED; INFLUENZA A- RESP PCR PANEL NOT DETECTED; INFLUENZA B - RESP PCR PANEL NOT DETECTED; M. PNEUMONIAE- RESP PCR PANEL NOT DETECTED; PARAINFLUENZA VIRUS 1 NOT DETECTED; PARAINFLUENZA VIRUS 2 NOT DETECTED; PARAINFLUENZA VIRUS 3 NOT DETECTED; PARAINFLUENZA VIRUS 4 NOT DETECTED; RHINOVIRUS/ENTEROVIRUS NOT DETECTED; RSV- RESP PCR PANEL NOT DETECTED
[2021-07-02 14:26] LABS: SARS-CoV-2 -RESP PCR PANEL DETECTED
[2021-07-02 15:08] VITALS: BP 99/75
== END 2021-07-02 15:37 | disposition home or self-care (01) ==
LOC: ED 12:15
DX: U07.1 COVID-19 (principal); I95.9 Hypotension, unspecified; I10 Essential (primary) hypertension; I48.91 Unspecified atrial fibrillation; Z79.01 Long term (current) use of anticoagulants
CPT/HCPCS: 0202U; 36415; 80053; 81001; 81003; 83690; 83880; 84484; 85025; 87086; 93005; 96360; 96361; 99284

== ENCOUNTER 2023-08-30 11:17 | Outpatient (CLI) | payer MEDICARE ==
[2023-08-30 11:56] LABS: CALCIUM 10.4 mg/dL (8.5-10.3); CREATININE 1.2 mg/dL (0.6-1.3); POTASSIUM 4.3 mmol/L (3.5-4.5)
== END 2023-08-30 11:18 | disposition home or self-care (01) ==
LOC: LAB 11:17
PROVIDERS: ATTEND Internal Medicine Cardiovascular Disease
DX: I10 Essential (primary) hypertension (principal)
CPT/HCPCS: 36415; 80048

== ENCOUNTER 2023-09-01 10:51 | Emergency (ER) | payer MEDICARE ==
--- NOTE | 2023-09-01 11:18 | ED Physician Documentation ---
PD HPI DYSPNEA - Stated complaint Stated Complaint: SHORTNESS OF BREATH, HIGH HEART RATE - History obtained from History obtained from: Patient, Friend - History of Present Illness Timing - onset: How many weeks ago (pt has not felt well for few weeks. Has noted increased blood pressure. HR has been okay. History of chronic atrial fib with 2 prior ablations but resumed fib. Has HTN as well. BP record has been 150- 180s systolic last weeks. No chest pain nor dyspnea per se.) Timing - duration: Weeks (has had general malaise for few weeks without URI symptoms, edema, chest pain. Had noted BP elevated. Cardiology added Telmasartan 3 days ago for BP and is to see pt next week. Pt states she started new med and stopped prior one, thinking it was to substitue and not supplement. Has noted fast HR.) Timing - details: Gradual onset, Waxing and waning PD PAST MEDICAL HISTORY - Past Medical History Cardiovascular: Hypertension, Atrial flutter (She had an ablation done many years ago in [place] by Dr. Yates and had been doing well for several years. She is now started with the fast heart rate episodes in the last month or so.), Arrhythmia Endocrine/Autoimmune: None - Past Surgical History Past Surgical History: Yes General: Appendectomy - Present Medications Home Medications: Ambulatory Orders Medication Instructions Recorded Confirmed Telmisartan 40 mg PO DAILY 09/01/23 09/01/23 - Allergies Allergies/Adverse Reactions: Allergies Allergy/AdvReac Type Severity Reaction Status Date / Time Opioids - Morphine Analogues Allergy Unknown Verified 09/01/23 11:19 Penicillins Allergy Unknown Verified 09/01/23 11:19 - Social History Does the pt smoke?: No Smoking Status: Never smoker Does the pt have substance abuse?: No - POLST Patient has POLST: No PD ED PE NORMAL - Vitals Vital signs reviewed: Yes (HR elevated and BP moderately high. ) - General General: Alert and oriented X 3, No acute distress, Well developed/nourished - Neck Neck: Supple, no meningeal sign, No adenopathy - Cardiac Cardiac: No murmur. No: RRR (irregular and fast c/w atrial fib. ) - Respiratory Respiratory: No respiratory distress, Clear bilaterally - Abdomen Abdomen: Soft, Non tender - Derm Derm: Normal color, Warm and dry - Extremities Extremities: No deformity, Normal ROM s pain, No edema - Neuro Neuro: Alert and oriented X 3, No motor deficit, Normal speech Results - Vitals Vitals: Vital Signs - 24 hr 09/01/23 09/01/23 09/01/23 11:06 11:49 12:10 Temperature 36.4 C L Heart Rate 153 H 145 H 121 H Respiratory 37 H 18 15 Rate Blood Pressure 166/123 H 155/98 H 135/99 H O2 Saturation 96 94 93 09/01/23 09/01/23 09/01/23 12:15 12:20 12:35 Temperature Heart Rate 106 H 118 H 115 H Respiratory 15 15 15 Rate Blood Pressure 159/93 H 155/90 H 148/98 H O2 Saturation 93 93 93 09/01/23 09/01/23 09/01/23 12:49 13:05 13:35 Temperature Heart Rate 121 H 130 H 106 H Respiratory 15 15 18 Rate Blood Pressure 135/99 H 163/115 H 152/97 H O2 Saturation 93 94 93 09/01/23 09/01/23 09/01/23 13:40 13:45 14:00 Temperature 36.5 C Heart Rate 84 84 98 Respiratory 15 15 22 Rate Blood Pressure 121/75 121/75 120/72 O2 Saturation 98 93 96 09/01/23 14:15 Temperature Heart Rate 98 Respiratory 20 Rate Blood Pressure 123/93 H O2 Saturation 98 Oxygen O2 Source Room air - EKG (time done) 11:04 EKG releavant findings:: EKG personally interpreted by author of this note. Relevant findings are: Rate: Rate (enter#) (152) Rhythm: Atrial fibrillation Ischemia: Normal ST segments. No: ST elevation c/w ischemia, ST depression Compare to prior EKG: Unchanged from prior EKG - Labs Labs: Laboratory Tests 09/01/23 09/01/23 09/01/23 11:24 11:24 11:24 WBC 5.5 RBC 4.16 L Hgb 13.2 Hct 42.2 MCV 101.4 H MCH 31.7 H MCHC 31.3 L RDW 14.7 Plt Count 265 MPV 10.1 Neut # (Auto) 3.2 Lymph # (Auto) 1.6 [place] # (Auto) 0.6 Eos # (Auto) 0.2 Baso # (Auto) 0.0 Absolute Nucleated RBC 0.00 Nucleated RBC % 0.0 Sodium 138 Potassium 4.3 Chloride 105 Carbon Dioxide 24 Anion Gap 9.0 BUN 24 H Creatinine 1.1 Estimated GFR (MDRD) 48 L Glucose 99 Calcium 10.0 Phosphorus 3.0 Magnesium 1.8 Total Bilirubin 0.9 AST 26 ALT 54 Alkaline Phosphatase 79 B-Natriuretic Peptide Total Protein 7.0 Albumin 4.1 Globulin 2.9 Albumin/Globulin Ratio 1.4 Lipase < 10 L TSH 4.73 09/01/23 11:24 WBC RBC Hgb Hct MCV MCH MCHC RDW Plt Count MPV Neut # (Auto) Lymph # (Auto) [place] # (Auto) Eos # (Auto) Baso # (Auto) Absolute Nucleated RBC Nucleated RBC % Sodium Potassium Chloride Carbon Dioxide Anion Gap BUN Creatinine Estimated GFR (MDRD) Glucose Calcium Phosphorus Magnesium Total Bilirubin AST ALT Alkaline Phosphatase B-Natriuretic Peptide 1289 H Total Protein Albumin Globulin Albumin/Globulin Ratio Lipase TSH - Rads (name of study) chest xray Relevant Findings:: Prelim report reviewed (normal CXR. ), EMP independent interpretation of test (enlarged heart. Mild vascular congestion. No overt CHF. ) PD Medical Decision Making - ED course Complexity details: reviewed results (basic labs and lytes are good. Renal function baseline. CXR mild vascular congestion but not overt CHF. BNP elevated with the rapid atrial fib, so can give dose of diuretic but I don't feel needs ongoing. ), re-evaluated patient (pt feeling better with heart rate slower. It is down to 100-110 after 2 doses of diltiazem. Chronic atrial fib I feel the target of HR under 110 with improved symptoms is stable for discahrge. ), considered differential (pt misunderstandingly stopped her Diltiazem when started Telmasartan 3 days ago and is noting fast HR. She also felt lightheaded at times and home BP record is showing systolic BP in 120s, so perhaps too low. ), d/w patient, d/w data center consultant (I talked with Dr. Martínez, and conveyed about her mistakenly stopping the diltiazem when started Telmasartan but the BP being relatively tood good in 120s systolic last 3 days even though HR 130-150 today with BP up. Advised diltiazem in ER, resume diltiazem and cut down Telmasartn to 20 mg daily.) Departure - Departure Disposition: Home, Self Care Clinical Impression: Dyspnea, Atrial fibrillation with rapid ventricular response Condition: Stable Record reviewed to determine appropriate education?: Yes Instructions: ED Afib Follow-Up: Kennedy Moya MD [Primary Care Provider] - Kodak Martínez MD [Provider Admit Priv/Credential] - Comments: I talked with Dr. Martínez. The intention from the office was to supplement your diltiazem with the Telmesartan new blood pressure medicine. Not having had the diltiazem for a few days is likely the reason your heart rate is running faster. We did give you some supplement IV doses here to slow down a bit. Go ahead and take your normal diltiazem dose when you get home. Resume it daily. Otherwise Dr. Martínez did want us to have you take just half a dose of the telmisartan to decrease your symptoms of lightheadedness etc. Stay well-hydrated otherwise. Low-salt diet. Continue other usual medicines. Forms: PCP List Discharge Date/Time: 09/01/23 14:22
[2023-09-01 11:28] LABS: BASOPHILS % (AUTO) 0.5 %; EOSINOPHILS # (AUTO) 0.2 10^3/uL (0.0-0.7); EOSINOPHILS % (AUTO) 2.7 %; HCT - HEMATOCRIT 42.2 % (37.0-47.0); HGB - HEMOGLOBIN 13.2 g/dL (12.0-16.0); LYMPHOCYTES # (AUTO) 1.6 10^3/uL (1.5-3.5); LYMPHOCYTES % (AUTO) 28.5 %; MEAN CORPUSCULAR HEMOGLOBIN 31.7 pg (27.0-31.0); MEAN CORPUSCULAR HGB CONC 31.3 g/dL (32.0-36.0); MEAN CORPUSCULAR VOLUME 101.4 fL (81.0-99.0); MEAN PLATELET VOLUME 10.1 fL (7.9-10.8); MONOCYTES # (AUTO) 0.6 10^3/uL (0.0-1.0); MONOCYTES % (AUTO) 10.2 %; NEUTROPHILS # (AUTO) 3.2 10^3/uL (1.5-6.6); NEUTROPHILS % (AUTO) 57.7 %; PLT - PLATELET COUNT 265 10^3/uL (130-450); RED BLOOD COUNT 4.16 10^6/uL (4.20-5.40); RED CELL DISTRIBUTION WIDTH 14.7 % (12.0-15.0); WHITE BLOOD COUNT 5.5 x10^3/uL (4.8-10.8)
[2023-09-01 12:04] LABS: ALBUMIN 4.1 g/dL (3.2-5.5); ALBUMIN/GLOBULIN RATIO 1.4 (1.0-2.2); ALKALINE PHOSPHATASE 79 IU/L (42-121); ALT ALANINE AMINOTRANSFERASE 54 IU/L (10-60); AST ASPARTATE AMINOTRANSFERASE 26 IU/L (10-42); BILIRUBIN,TOTAL 0.9 mg/dL (0.2-1.0); BUN - BLOOD UREA NITROGEN 24 mg/dL (6-20); CARBON DIOXIDE - CO2 24 mmol/L (21-32); CHLORIDE 105 mmol/L (101-111); CREATININE 1.1 mg/dL (0.6-1.3); GFR - MDRD 48 (>89); GLUCOSE 99 mg/dL (74-104); MAGNESIUM 1.8 mg/dL (1.7-2.3); POTASSIUM 4.3 mmol/L (3.5-4.5); SODIUM 138 mmol/L (135-145)
[2023-09-01 12:05] LABS: LIPASE < 10 U/L (11-82)
[2023-09-01] MEDS: SODIUM CHLORIDE 0.9% 1,000 ML IV STA (12:06)
[2023-09-01] MEDS: diltiaZEM INJ 5 MG/ML VIAL IVP STA ×2 (12:06→13:27)
--- NOTE | 2023-09-01 12:44 | XRAY Report ---
PROCEDURE: Chest 1V INDICATIONS: dyspnea TECHNIQUE: One view of the chest was acquired. COMPARISON: Chest x-ray 07/02/2021. FINDINGS: Surgical changes and devices: None. Lungs and pleura: No pleural effusions or pneumothorax. Lungs are clear. Mediastinum: Mediastinal contours appear normal. Heart is enlarged. Bones and chest wall: No suspicious bony lesions. Overlying soft tissues appear unremarkable. IMPRESSION: No acute cardiopulmonary process. Reviewed by: Marina Stewart MD, PhD on 09/01/2023 12:42 PM PDT Approved by: Marina Stewart MD, PhD on 09/01/2023 12:42 PM PDT Station ID: [id number]
[2023-09-01] MEDS: FUROSEMIDE 20 MG TABLET PO STA (13:27)
[2023-09-01 14:29] VITALS: BP 123/93; O2SAT 98
== END 2023-09-01 14:22 | disposition home or self-care (01) ==
LOC: ED 10:51
DX: I48.20 Chronic atrial fibrillation, unspecified (principal); R00.0 Tachycardia, unspecified; R06.00 Dyspnea, unspecified; T46.1X6A Underdosing of calcium-channel blockers, initial encounter; Z91.138 Patient's unintentional underdosing of medication regimen for other reason
CPT/HCPCS: 36415; 71045; 80053; 83690; 83735; 83880; 84100; 84443; 85025; 93005; 96374; 99284; A9270

== ENCOUNTER 2023-09-27 14:25 | Outpatient (CLI) | payer MEDICARE ==
--- NOTE | 2023-09-27 17:03 | XRAY Report ---
PROCEDURE: Ankle 1-2V RT INDICATIONS: RIGHT ANKLE JOINT PAIN TECHNIQUE: 3 views of the ankle were acquired. COMPARISON: None. FINDINGS: Bones: No fractures or dislocations. Ankle mortise is normally aligned. No suspicious bony lesions . Plantar calcaneal enthesophyte. Soft tissues: Moderate tibiotalar joint effusion. Achilles tendon appears normal. Moderate swelling about the ankle. IMPRESSION: No displaced fractures. Moderate joint effusion. Internal derangement not excluded. Reviewed by: Mio Guallpa MD on 09/27/2023 5:01 PM PDT Approved by: Mio Guallpa MD on 09/27/2023 5:01 PM PDT Station ID: [id number]
== END 2023-09-27 14:26 | disposition home or self-care (01) ==
LOC: DI 14:25
PROVIDERS: ATTEND Nurse Practitioner Family
DX: M25.471 Effusion, right ankle (principal); M25.571 Pain in right ankle and joints of right foot

== ENCOUNTER 2023-09-29 10:06 | Outpatient (CLI) | payer MEDICARE ==
[2023-09-29 10:31] LABS: CALCIUM 10.2 mg/dL (8.5-10.3); CREATININE 1.5 mg/dL (0.6-1.3); POTASSIUM 5.1 mmol/L (3.5-4.5); URIC ACID 7.8 mg/dL (2.3-6.6)
== END 2023-09-29 10:07 | disposition home or self-care (01) ==
LOC: LAB 10:06
PROVIDERS: ATTEND Internal Medicine Cardiovascular Disease
DX: I10 Essential (primary) hypertension (principal)
CPT/HCPCS: 36415; 80048; 84550

== ENCOUNTER 2023-11-14 10:34 | Outpatient (CLI) | payer MEDICARE | END 2023-11-14 10:35 | disposition critical access hospital (66) | LOC: EMS 10:34 | DX: R42 Dizziness and giddiness (principal); R62.7 Adult failure to thrive | CPT/HCPCS: A0425; A0429 ==

== ENCOUNTER 2023-11-14 10:37 | Emergency (ER) | payer MEDICARE ==
[2023-11-14] MEDS: diphenhydrAMINE INJ 50 MG/ML VIAL IVP STA (12:16)
--- NOTE | 2023-11-14 12:21 | ED Physician Documentation ---
History of Present Illness - Stated complaint Stated Complaint: LEG PX - Chief complaint Chief Complaint: General - History obtained from History obtained from: Patient, Family, EMS - History of Present Illness Pain level max: 0 Pain level now: 0 - Additonal information Additional information: Patient is an 83-year-old female brought in to the emergency department for altered mental status. She reportedly lives at home alone in an apartment. Her friend states that she last saw her on Tuesday. They think that she may have been on the ground since then. Unclear if the patient is taking her medication or not. She is on diltiazem, colchicine. Patient states she does not remember what happened. She does not think she fell. She states that her legs are itchy. She takes sheShe states that she usually takes Benadryl for this. No difficulty breathing. No chest pain. No headache. No neck or back pain. She initially stated that her right tibia was sore, then stated that her left tibia was sore. Now she does not think either one of them are sore. Review of Systems Constitutional: denies: Fever, Chills Respiratory: denies: Cough GI: denies: Vomiting, Diarrhea Skin: denies: Rash Musculoskeletal: denies: Neck pain, Back pain Neurologic: denies: Headache PD PAST MEDICAL HISTORY - Past Medical History Cardiovascular: Hypertension, Atrial flutter, Arrhythmia Endocrine/Autoimmune: None - Past Surgical History Past Surgical History: Yes General: Appendectomy - Present Medications Home Medications: Ambulatory Orders Medication Instructions Recorded Confirmed Telmisartan 40 mg PO DAILY 09/01/23 11/14/23 Colchicine [Lodoco] 1 tab PO DAILY 11/14/23 11/14/23 dilTIAZem HCL [Diltiazem 24Hr ER 1 cap PO DAILY 11/14/23 11/14/23 (Cd)] - Allergies Allergies/Adverse Reactions: Allergies Allergy/AdvReac Type Severity Reaction Status Date / Time Opioids - Morphine Analogues Allergy Unknown Verified 11/14/23 18:15 Penicillins Allergy Unknown Verified 11/14/23 18:15 - Social History Does the pt smoke?: No Smoking Status: Never smoker Does the pt drink ETOH?: Yes ETOH Use: Wine Does the pt have substance abuse?: No - Immunizations Immunizations are current?: Yes - POLST Patient has POLST: No PD ED PE NORMAL - Vitals Vital signs reviewed: Yes - General General: No acute distress, Other (alert, oriented to person, place but not time) - HEENT HEENT: Atraumatic, PERRL, EOMI, Moist mucous membranes - Neck Neck: Supple, no meningeal sign - Cardiac Cardiac: RRR, Strong equal pulses - Respiratory Respiratory: No respiratory distress, Clear bilaterally - Abdomen Abdomen: Normal bowel sounds, Soft, Non tender, Non distended - Back Back: No CVA TTP, No spinal TTP - Derm Derm: Warm and dry, No rash - Extremities Extremities: No deformity, No tenderness to palpate, Normal ROM s pain, No edema, No calf tenderness / cord - Neuro Neuro: air grinder 2-12 intact, No motor deficit, Other (alert, oriented to person, place but not time) Eye Opening: Spontaneous Motor: Obeys Commands Verbal: Confused GCS Score: 14 - Psych Psych: Normal mood, Normal affect Results - Vitals Vitals: Vital Signs - 24 hr 11/14/23 11/14/23 11/14/23 11:25 12:43 12:47 Temperature 36.4 C L Heart Rate 118 H 175 H 175 H Respiratory 18 22 14 Rate Blood Pressure 107/89 H 121/95 H 129/71 O2 Saturation 98 90 L 93 If not protocol : Oxygen Flow, liters/minute 11/14/23 11/14/23 11/14/23 13:02 13:08 13:10 Temperature Heart Rate 135 H 124 H 125 H Respiratory 29 H 22 27 H Rate Blood Pressure 133/93 H 116/95 H 126/95 H O2 Saturation 93 92 92 If not protocol : Oxygen Flow, liters/minute 11/14/23 11/14/23 11/14/23 15:01 15:05 15:10 Temperature Heart Rate 159 H 175 H 177 H Respiratory 26 H 22 24 Rate Blood Pressure 150/122 H 134/105 H 150/122 H O2 Saturation 93 93 93 If not protocol : Oxygen Flow, liters/minute 11/14/23 11/14/23 11/14/23 15:20 15:31 15:52 Temperature Heart Rate 178 H 166 H 160 H Respiratory 27 H 25 H 25 H Rate Blood Pressure 159/140 H 189/158 H 138/64 H O2 Saturation 98 97 93 If not protocol : Oxygen Flow, liters/minute 11/14/23 11/14/23 11/14/23 15:56 16:01 16:30 Temperature Heart Rate 165 H 160 H 117 H Respiratory 25 H 20 22 Rate Blood Pressure 170/157 H 177/116 H 102/81 H O2 Saturation 96 95 If not protocol 2 2 : Oxygen Flow, liters/minute 11/14/23 11/14/23 11/14/23 16:52 17:00 17:30 Temperature Heart Rate 129 H 120 H 122 H Respiratory 20 21 23 Rate Blood Pressure 107/72 121/86 H 104/88 H O2 Saturation 97 97 97 If not protocol 3 : Oxygen Flow, liters/minute 11/14/23 18:00 Temperature Heart Rate 126 H Respiratory 20 Rate Blood Pressure 101/72 O2 Saturation 97 If not protocol : Oxygen Flow, liters/minute Oxygen O2 Source simpole mask Oxygen Flow Rate 3 - EKG (time done) 1323 EKG releavant findings:: EKG personally interpreted by author of this note. Relevant findings are: Rate: Rate (enter#) (139) Rhythm: Atrial fibrillation (RVR) [place]: Normal Intervals: Wide QRS (borderline) Ischemia: Non specific changes - Labs Labs: Laboratory Tests 11/14/23 11/14/23 11/14/23 12:34 12:34 13:37 WBC 7.9 RBC 4.05 L Hgb 12.8 Hct 40.7 MCV 100.5 H MCH 31.6 H MCHC 31.4 L RDW 18.0 H Plt Count 112 L MPV 10.6 Neut # (Auto) 5.9 Lymph # (Auto) 1.4 L [place] # (Auto) 0.6 Eos # (Auto) 0.0 Baso # (Auto) 0.0 Absolute Nucleated RBC 0.03 Nucleated RBC % 0.4 PT INR APTT Sodium 139 Potassium 5.4 H Chloride 104 Carbon Dioxide 22 Anion Gap 13.0 BUN 54 H Creatinine 1.9 H Estimated GFR (MDRD) 25 L Glucose 110 H Calcium 10.1 Magnesium 2.3 Total Bilirubin 4.3 H AST 584 H ALT > 5000 H Alkaline Phosphatase 296 H Ammonia Lactate Dehydrogenase Total Creatine Kinase 574 H Troponin I High Sens 929.9 H* B-Natriuretic Peptide Total Protein 6.3 L Albumin 3.5 Globulin 2.8 Albumin/Globulin Ratio 1.3 Lipase 10 L TSH 9.10 H Salicylates < 1.5 Acetaminophen < 0.1 Ethyl Alcohol < 10.0 07/08/24 07/08/24 07/08/24 13:37 13:50 14:02 WBC RBC Hgb Hct MCV MCH MCHC RDW Plt Count MPV Neut # (Auto) Lymph # (Auto) [place] # (Auto) Eos # (Auto) Baso # (Auto) Absolute Nucleated RBC Nucleated RBC % PT 24.2 H INR 2.4 H APTT 34.8 H Sodium Potassium Chloride Carbon Dioxide Anion Gap BUN Creatinine Estimated GFR (MDRD) Glucose Calcium Magnesium Total Bilirubin AST ALT Alkaline Phosphatase Ammonia Lactate Dehydrogenase 622 H Total Creatine Kinase Troponin I High Sens B-Natriuretic Peptide 3734 H Total Protein Albumin Globulin Albumin/Globulin Ratio Lipase TSH Salicylates Acetaminophen Ethyl Alcohol 11/14/23 16:03 WBC RBC Hgb Hct MCV MCH MCHC RDW Plt Count MPV Neut # (Auto) Lymph # (Auto) [place] # (Auto) Eos # (Auto) Baso # (Auto) Absolute Nucleated RBC Nucleated RBC % PT INR APTT Sodium Potassium Chloride Carbon Dioxide Anion Gap BUN Creatinine Estimated GFR (MDRD) Glucose Calcium Magnesium Total Bilirubin AST ALT Alkaline Phosphatase Ammonia 32.5 Lactate Dehydrogenase Total Creatine Kinase Troponin I High Sens B-Natriuretic Peptide Total Protein Albumin Globulin Albumin/Globulin Ratio Lipase TSH Salicylates Acetaminophen Ethyl Alcohol - Rads (name of study) head CT Relevant Findings:: Final report received, See rad report cxr Relevant Findings:: Final report received, See rad report RUQ US Relevant Findings:: Final report received, See rad report PD Medical Decision Making - ED course Complexity details: reviewed results, re-evaluated patient, considered differential, d/w patient, d/w internal consultant ED course: 83-year-old female with a multitude of medical problems. The first is acute liver injury. ALT greater than 5000. Hepatitis panel was sent, this is a reference test so it may take a few days to come back. Her Tylenol level is normal. Alcohol level is negative. She does have a history of heavy alcohol use and appears to have some alcohol withdrawal delirium here. Improved with Ativan. Was also given a dose of phenobarbital for the alcohol withdrawal. This helped with her agitation. Head CT shows a possible subacute small infarct. She is unable to sit still for an MRI. Her high sensitivity troponin came back at 929, the upper limit of normal is approximately 14. She is in atrial fibrillation with rapid ventricular response. Appears to be in heart failure as well. Has cardiomegaly on chest x-ray. Right upper quadrant ultrasound does not appear consistent with cirrhosis. Patient will need specialty services not available at this facility. Therefore the patient will need to be transferred for higher level of care. Contacted several facilities. Meagan Ewing, Dr. Pierre, graciously accept in transfer. Patient was maintained on a heparin drip, diltiazem drip. Still mildly tachycardic but imp roving. Her mental status improved with the Ativan and phenobarbital. COBRA forms completed. Patient will be transferred. Patient was transferred on a heparin drip and diltiazem drip. This document was made in part using voice recognition software. While efforts are made to proofread this document, sound alike and grammatical errors may occur. - Critical Care Time(min): 60 Time Includes: Direct patient care, Document care, Medical consult, See progress note Data interpretation: See progress note Procedures included in critical care time: See progress note Procedures excluded from critical care time: See progress note Departure - Departure Disposition: 02 Transfer Acute Care Hosp Clinical Impression: NSTEMI (non-ST elevated myocardial infarction), Atrial fibrillation with rapid ventricular response, Shock liver CHF (congestive heart failure) Qualifiers: Heart failure type: unspecified Heart failure chronicity: acute Qualified Code(s): I50.9 - Heart failure, unspecified Alcohol withdrawal Qualifiers: Complication of substance-induced condition: with unspecified complication Qualified Code(s): F10.939 - Alcohol use, unspecified with withdrawal, unspecified Condition: Stable Forms: PCP List Discharge Date/Time: 11/14/23 14:42
[2023-11-14 12:40] LABS: BASOPHILS % (AUTO) 0.1 %; EOSINOPHILS % (AUTO) 0.3 %; HCT - HEMATOCRIT 40.7 % (37.0-47.0); HGB - HEMOGLOBIN 12.8 g/dL (12.0-16.0); LYMPHOCYTES # (AUTO) 1.4 10^3/uL (1.5-3.5); LYMPHOCYTES % (AUTO) 17.4 %; MEAN CORPUSCULAR HEMOGLOBIN 31.6 pg (27.0-31.0); MEAN CORPUSCULAR HGB CONC 31.4 g/dL (32.0-36.0); MEAN CORPUSCULAR VOLUME 100.5 fL (81.0-99.0); MEAN PLATELET VOLUME 10.6 fL (7.9-10.8); MONOCYTES # (AUTO) 0.6 10^3/uL (0.0-1.0); MONOCYTES % (AUTO) 7.6 %; NEUTROPHILS # (AUTO) 5.9 10^3/uL (1.5-6.6); NEUTROPHILS % (AUTO) 74.2 %; NRBC ABSOLUTE COUNT (AUTO) 0.03 x10^3/uL; NUCLEATED RED BLOOD CELLS AUTO 0.4 /100WBC; PLT - PLATELET COUNT 112 10^3/uL (130-450); RED BLOOD COUNT 4.05 10^6/uL (4.20-5.40); WHITE BLOOD COUNT 7.9 x10^3/uL (4.8-10.8)
[2023-11-14] MEDS: SODIUM CHLORIDE 0.9% 1,000 ML IV STA (12:54)
[2023-11-14] MEDS: diltiaZEM INJ 5 MG/ML VIAL IVP STA (12:57)
[2023-11-14 13:07] LABS: CK- CREATINE KINASE 574 IU/L (30-223); ETOH - ETHANOL < 10.0 mg/dL; LIPASE 10 U/L (11-82); MAGNESIUM 2.3 mg/dL (1.7-2.3)
[2023-11-14 13:10] LABS: ACETAMINOPHEN < 0.1 ug/mL; ALBUMIN 3.5 g/dL (3.2-5.5); ALBUMIN/GLOBULIN RATIO 1.3 (1.0-2.2); ALKALINE PHOSPHATASE 296 IU/L (42-121); ALT ALANINE AMINOTRANSFERASE > 5000 IU/L (10-60); AST ASPARTATE AMINOTRANSFERASE 584 IU/L (10-42); BILIRUBIN,TOTAL 4.3 mg/dL (0.2-1.0); BUN - BLOOD UREA NITROGEN 54 mg/dL (6-20); CALCIUM 10.1 mg/dL (8.5-10.3); CARBON DIOXIDE - CO2 22 mmol/L (21-32); CHLORIDE 104 mmol/L (101-111); CREATININE 1.9 mg/dL (0.6-1.3); GFR - MDRD 25 (>89); GLUCOSE 110 mg/dL (74-104); POTASSIUM 5.4 mmol/L (3.5-4.5); SALICYLATE < 1.5 mg/dL; SODIUM 139 mmol/L (135-145); TOTAL PROTEIN 6.3 g/dL (6.4-8.9)
[2023-11-14] MEDS: LORazepam 2 MG/ML VIAL IVP STA ×2 (13:52→16:02)
[2023-11-14 14:20] LABS: PARTIAL THROMBOPLASTIN TIME 34.8 secs (24.9-33.3)
--- NOTE | 2023-11-14 14:20 | XRAY Report ---
PROCEDURE: Chest 1V INDICATIONS: altered, found on ground TECHNIQUE: One view of the chest was acquired. COMPARISON: 09/01/2023 FINDINGS: Surgical changes and devices: None. Lungs and pleura: Findings are more advanced than on the previous study. Diffuse interstitial infilt rates with patchy airspace consolidation in the right lung. Consider asymmetric pulmonary edema versu s pulmonary edema plus superimposed patchy right-sided pneumonia. Mediastinum: Mediastinal contours appear normal. Increased cardiomegaly. Bones and chest wall: No suspicious bony lesions. Overlying soft tissues appear unremarkable. IMPRESSION: Findings either represent a congestive heart failure exacerbation with asymmetric pulmonary edema or congestive heart failure with superimposed patchy pneumonia in the right lung. Reviewed by: Enmanuel Shaw MD on 11/14/2023 2:18 PM PDT Approved by: Enmanuel Shaw MD on 11/14/2023 2:18 PM PDT Station ID: [id number]
[2023-11-14 14:24] LABS: INR 2.4 (0.8-1.2); PT - PROTHROMBIN TIME 24.2 secs (9.9-12.6)
--- NOTE | 2023-11-14 14:37 | CT Report ---
PROCEDURE: Head WO INDICATIONS: altered mental status TECHNIQUE: Noncontrast 4.5 mm thick angled axial sections acquired from the foramen magnum to the vertex. For r adiation dose reduction, the following was used: automated exposure control, adjustment of mA and/or kV according to patient size. COMPARISON: None. FINDINGS: Image quality: Excellent. CSF spaces: Basal cisterns are patent. No extra-axial fluid collections. Ventricles are normal in size and shape. Brain: No midline shift. No intracranial masses or hemorrhage. Loss of vasques-white junction in the r elatively small area of cortex involving the right parietal lobe. Findings are consistent with a prob able relatively small subacute cortical infarct in the right parietal region. Reference axial image 2 3 of series 2. Skull and face: Calvarium and visualized facial bones are intact, without suspicious lesions. Sinuses: Visualized sinuses and mastoids are clear. IMPRESSION: Probable small subacute cortical infarct in the right parietal region. Consider MRI of the brain for correlation. Reviewed by: Enmanuel Shaw MD on 11/14/2023 2:36 PM PDT Approved by: Enmanuel Shaw MD on 11/14/2023 2:36 PM PDT Station ID: [id number]
[2023-11-14] MEDS: diltiaZEM INJ 125 MG in DEXTROSE 5% 100 ML IV STA (14:54)
[2023-11-14] MEDS: HEPARIN 5,000 UNIT/ML VIAL IVP ONE (15:46)
[2023-11-14] MEDS: HEPARIN 25000UNITS/500ML (D5W) 25,000 UNIT/500 ML BAG IV SCH (15:50)
[2023-11-14] MEDS: LACTULOSE 10 GM /15 ML UDC PO STA (16:02)
[2023-11-14] MEDS: PHENobarbital 65 MG/ML VIAL IM STA (16:37)
[2023-11-14 17:01] VITALS: O2SAT 97
--- NOTE | 2023-11-14 17:08 | Ultrasound Report ---
PROCEDURE: Abdomen Limited INDICATIONS: elevated LFTs TECHNIQUE: Real-time focused scanning was performed of the abdomen, with image documentation. COMPARISONS: None. FINDINGS: Liver: Liver is normal in size. Increased liver parenchymal echotexture is seen, no discrete hepatic lesion. Gallbladder: No gallstones, sludge, wall thickening or pericholecystic edema. Biliary ducts: Intrahepatic bile ducts are non-dilated. Extrahepatic bile duct caliber measures 4.2 mm. Normal is 6-7 mm or less in diameter, or 10 mm or less post-cholecystectomy. Pancreas: Visualized portions of the pancreas are sonographically normal. Right kidney: Normal in size and echotexture. Right kidney measures 8.1 cm long. No hydronephrosis o r nephrolithiasis. No solid masses. No complex renal cystic lesions which require follow-up. IVC: Intrahepatic inferior vena cava is patent. Miscellaneous: No free abdominal fluid. IMPRESSION: 1. Hepatic steatosis. No discrete hepatic lesion. 2. Normal-appearing gallbladder, no biliary ductal dilatation. 3. Normal-appearing pancreas and right kidney. Reviewed by: Tyron Mckeon MD on 11/14/2023 5:07 PM PDT Approved by: Tyron Mckeon MD on 11/14/2023 5:07 PM PDT Station ID: [id number]
[2023-11-14 18:03] VITALS: BP 101/72
[2023-11-15 04:08] LABS: HBsAG SCREEN Negative (Negative); HCV AB Non Reactive (Non Reactive); HEPATITIS B CORE IGM AB Negative (Negative)
== END 2023-11-14 18:15 | disposition short-term general hospital (02) ==
LOC: EDSEX → MERGE 10:37 → ED 10:37
DX: I21.4 Non-ST elevation (NSTEMI) myocardial infarction (principal); I11.0 Hypertensive heart disease with heart failure; I50.9 Heart failure, unspecified; I48.91 Unspecified atrial fibrillation; K72.00 Acute and subacute hepatic failure without coma; F10.239 Alcohol dependence with withdrawal, unspecified; Z79.899 Other long term (current) drug therapy
CPT/HCPCS: 36415; 70450; 71045; 76705; 80053; 80074; 80143; 82140; 82550; 83615; 83690; 83735; 83880; 84443; 84484; 85025; 85610; 85730; 93005; 96372; 96374; 96375; 96376; 99291; A9270; G0480; J1200; J2060; J2560; 80179; 82077